=== PATIENT | female | born 1980 | race American Indian/Alaskan Native ===

== ENCOUNTER → 2016-12-04 | Outpatient (CLI) | payer OTHER ==
--- NOTE | 2016-12-04 11:45 | DI ---
MRI LUMBAR SPINE SCAN WITHOUT IV CONTRAST, 12/04/2016 10:09 AM: Clinical History: Degenerative lumbar disc disease. Previous Exam: 02/05/2016. Technique: Sagittal and axial T2 weighted; sagittal T1 weighted and T2 STIR; and axial PD. Since the previous exam 10 months earlier, the patient has undergone anterior and posterior fusions a t L5-S1. The remaining vertebral bodies are of normal height. There is disc space narrowing at L3-4 a nd L4-5 with desiccation change. The remaining disc spaces are of normal height and signal pattern. T he cord terminates at T12. The conus medullaris is normal. The T10-11 and T11-12 disc spaces have min imally bulging but not herniated discs without canal or neural foraminal stenosis. The T12-L1 through L2-3 disc spaces are normal. L3-4 has a mild circumferentially bulging but not herniated disc withou t canal or neural foraminal stenosis. L4-5 also has a bulging but not herniated disc without canal st enosis and mild bilateral neural foraminal stenosis but the nerve roots still exit appropriately. The re is a grade 1 spondylolisthesis at L5-S1. Posterior fusions are accomplished with metallic struts t ransfixed with pedicle screws between L5 and S1. There is a left L5 hemilaminectomy with loss of the epidural fat along the left posterolateral margin of the thecal sac most likely secondary to scarring although no IV contrast was administered. There is no canal stenosis or right neural foraminal steno sis. Because of artifacts from the metallic hardware, assessment of the left neural foramen is not po ssible. There is no "clumping" of the nerve roots to indicate arachnoiditis. Readin. Status post left L5 hemilaminectomy with anterior and posterior fusions at L5-S1. There is no can al or right neural foraminal stenosis. Assessment of the left neural foramen is not possible because of artifacts from the metallic hardware. 2. There are bulging but not herniated discs without canal or neural foraminal stenosis at T10-11, T 11-12, and at L3-4 and L4-5. 3. The disc spaces from T12-L1 through L2-3 are normal.
== END ==
LOC: MRI 10:06
PROVIDERS: ATTEND Family Medicine
DX: M51.36 Other intervertebral disc degeneration, lumbar region (principal); M47.815 Spondylosis without myelopathy or radiculopathy, thoracolumbar region
CPT/HCPCS: 72148